=== PATIENT | female | born 1935 | race Two or more races ===

== ENCOUNTER 2022-12-29 18:15 | Inpatient (IN) | payer OTHER ==
[~2022-12-29] VITALS: Ht 152.4 cm; Wt 81.6 kg
[2022-12-29] MEDS ORDERED: ZOLOFT25 MG PO (18:56)
[2022-12-29] MEDS ORDERED: LEVOTHYROXINE25 MCG PO (18:56)
[2022-12-30] MEDS ORDERED: FOSAMAX70 MG PO (08:21)
[2022-12-31] MEDS ORDERED: RIVASTIGMINE1 EACH (08:05)
[2022-12-31] MEDS ORDERED: CANDESARTAN-HC1 EACH (08:06)
[2022-12-31] MEDS ORDERED: SYNTHROID75 MCG (08:06)
[2022-12-31] MEDS ORDERED: SERTRALINE HCL50 MG (08:06)
[2022-12-31] MEDS ORDERED: METFORMIN HCL500 M4 (08:06)
[2023-01-24] MEDS ORDERED: SIMVASTATIN5 MG (10:54)
[2023-01-24] MEDS ORDERED: SERTRALINE HCL100 MG PO (10:59)
[2023-02-12] MEDS ORDERED: RIVASTIGMINE1 EACH TD (10:20)
[2023-02-12] MEDS ORDERED: LORAZEPAM1 MG PO (10:21)
[2023-02-12] MEDS ORDERED: SIMVASTATIN5 MG PO (10:21)
[2023-02-12] MEDS ORDERED: CANDESARTAN-HC1 EACH PO (10:21)
[2023-02-12] MEDS ORDERED: INTESTINEX680 M1 PO (10:22)
[2023-02-12] MEDS ORDERED: QUETIAPINE FUMA25 MG PO (10:22)
[2023-02-12] MEDS ORDERED: SYNTHROID100 MCG PO (10:22)
[2023-02-12] MEDS ORDERED: METFORMIN HCL500 M4 PO (10:23)
[2023-02-12] MEDS ORDERED: Neurin-Sl Tablet Sl SL (10:23)
[2023-02-12] MEDS ORDERED: FOSAMAX70 MG PO (10:23)
[2023-02-12] MEDS ORDERED: AMOX1TAB5 PO (10:24)
== END 2023-02-12 13:58 | disposition home or self-care (01) | DRG 480 ==
LOC: ER 18:15 → SURG 12-30 00:18 → SURH 01-09 14:32 → ICU 01-13 21:59 → SURH 01-26 21:15
PROVIDERS: Orthopaedic Surgery; ADMIT Internal Medicine; ATTEND Internal Medicine
PROC: 30233N1 Transfusion of Nonautologous Red Blood Cells into Peripheral Vein, Percutaneous Approach (ICD-10-PCS; 2022-12-30)
PROC: 0QS706Z Reposition Left Upper Femur with Intramedullary Internal Fixation Device, Open Approach (ICD-10-PCS; principal; 2022-12-31 12:00)
PROC: 4A12X4Z Monitoring of Cardiac Electrical Activity, External Approach (ICD-10-PCS; 2023-01-11)
PROC: 30243L1 Transfusion of Nonautologous Fresh Plasma into Central Vein, Percutaneous Approach (ICD-10-PCS; 2023-01-15)
PROC: 30243K1 Transfusion of Nonautologous Frozen Plasma into Central Vein, Percutaneous Approach (ICD-10-PCS; 2023-01-15)
PROC: 02H633Z Insertion of Infusion Device into Right Atrium, Percutaneous Approach (ICD-10-PCS; 2023-01-15)
PROC: 30243M1 Transfusion of Nonautologous Plasma Cryoprecipitate into Central Vein, Percutaneous Approach (ICD-10-PCS; 2023-01-16)
DX: S72.142A Displaced intertrochanteric fracture of left femur, initial encounter for closed fracture (principal); R57.1 Hypovolemic shock; D62 Acute posthemorrhagic anemia; F02.A11 Dementia in other diseases classified elsewhere, mild, with agitation; K51.211 Ulcerative (chronic) proctitis with rectal bleeding; G21.19 Other drug induced secondary parkinsonism; F02.A18 Dementia in other diseases classified elsewhere, mild, with other behavioral disturbance; K92.1 Melena; N17.9 Acute kidney failure, unspecified; N39.0 Urinary tract infection, site not specified; R78.81 Bacteremia; T43.4X5A Adverse effect of butyrophenone and thiothixene neuroleptics, initial encounter; N39.43 Post-void dribbling; B96.1 Klebsiella pneumoniae [K. pneumoniae] as the cause of diseases classified elsewhere; D64.89 Other specified anemias; G30.9 Alzheimer's disease, unspecified; E03.9 Hypothyroidism, unspecified; I10 Essential (primary) hypertension; E78.5 Hyperlipidemia, unspecified; E11.9 Type 2 diabetes mellitus without complications; Z79.4 Long term (current) use of insulin; Z87.891 Personal history of nicotine dependence

== ENCOUNTER 2023-02-26 15:07 | Inpatient (IN) | payer OTHER ==
[~2023-02-26] VITALS: Ht 160 cm; Wt 68.0 kg
[~2023-02-26 15:07] MED LIST: AMOX1TAB5 PO; CANDESARTAN-HC1 EACH; CANDESARTAN-HC1 EACH PO; FOSAMAX70 MG PO; INTESTINEX680 M1 PO; LEVOTHYROXINE25 MCG PO; LORAZEPAM1 MG PO; METFORMIN HCL500 M4; METFORMIN HCL500 M4 PO; Neurin-Sl Tablet Sl SL; QUETIAPINE FUMA25 MG PO; RIVASTIGMINE1 EACH; RIVASTIGMINE1 EACH TD; SERTRALINE HCL100 MG PO; SERTRALINE HCL50 MG; SIMVASTATIN5 MG; SIMVASTATIN5 MG PO; SYNTHROID100 MCG PO; SYNTHROID75 MCG; ZOLOFT25 MG PO
[2023-02-26] MEDS ORDERED: METFORMIN HCL500 M3 PO (15:39)
[2023-02-26] MEDS ORDERED: ZOCOR20 MG PO (15:39)
[2023-02-26] MEDS ORDERED: SYNTHROID75 MCG PO (15:39)
[2023-02-26] MEDS ORDERED: SEROQUEL50 MG PO (15:40)
[2023-02-26] MEDS ORDERED: ATIVAN2 M1 (15:40)
== END 2023-03-02 17:51 | disposition home or self-care (01) | DRG 854 ==
LOC: ER 15:07 → MEDJ 23:35
PROVIDERS: Emergency Medicine; ADMIT Internal Medicine; ATTEND Internal Medicine
PROC: B020ZZZ Computerized Tomography (CT Scan) of Brain (ICD-10-PCS; 2023-02-26)
PROC: 0JD90ZZ Extraction of Buttock Subcutaneous Tissue and Fascia, Open Approach (ICD-10-PCS; principal; 2023-02-27)
PROC: 4A12X4Z Monitoring of Cardiac Electrical Activity, External Approach (ICD-10-PCS; 2023-02-27)
DX: A41.9 Sepsis, unspecified organism (principal); B37.49 Other urogenital candidiasis; N17.8 Other acute kidney failure; L02.31 Cutaneous abscess of buttock; E87.0 Hyperosmolality and hypernatremia; E86.0 Dehydration; E87.6 Hypokalemia; L89.322 Pressure ulcer of left buttock, stage 2; G30.8 Other Alzheimer's disease; F02.80 Dementia in other diseases classified elsewhere, unspecified severity, without behavioral disturbance, psychotic disturbance, mood disturbance, and anxiety; E03.9 Hypothyroidism, unspecified; E11.9 Type 2 diabetes mellitus without complications; B96.1 Klebsiella pneumoniae [K. pneumoniae] as the cause of diseases classified elsewhere; B96.4 Proteus (mirabilis) (morganii) as the cause of diseases classified elsewhere; B95.2 Enterococcus as the cause of diseases classified elsewhere; Z74.01 Bed confinement status; Z79.84 Long term (current) use of oral hypoglycemic drugs; R55 Syncope and collapse